=== PATIENT | female | born 1970 | race African-American/Black ===

== ENCOUNTER 2020-03-27 20:04 | Emergency (ER) | payer OTHER ==
[~2020-03-27] VITALS: Ht 165.1 cm; Wt 98.9 kg
--- NOTE | 2020-03-27 20:10 | NUR ---
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 PRESSURE APPLIED PER PT HER TDAP VACCINE IS NOT UP TO DATE.
--- NOTE | 2020-03-27 20:20 | NUR ---
GUERDA JOHNSTON PAC AT THE BED SIDE FOR ASSESSMENT
[2020-03-27] MEDS ORDERED: LIDOCAINE 1% INJ 50 ML MDV IJ ONE (20:26)
[2020-03-27] MEDS ORDERED: TDAP [DIPH/PERTUSSIS/TET] 0.5 ML VIAL IM ONE ×2 (20:28→20:30)
[2020-03-27] MEDS ORDERED: ACETAMINOPHEN ES 500 MG TABLET ONE (20:28)
--- NOTE | 2020-03-27 20:28 | NUR ---
TECH AT BEDSIDE FOR XRAY
[2020-03-27] MEDS ORDERED: ACETAMINOPHEN 325 MG TABLET PO ONE (20:30)
--- NOTE | 2020-03-27 21:03 | NUR ---
DR JODI JAEGER.
[2020-03-27] MEDS ORDERED: CEFTRIAXONE 1GM BAG (ER ONLY) 1 GM/50 ML PIGGYBACK IV ONE (21:30)
[2020-03-27] MEDS ORDERED: CEFTRIAXONE 1GM BAG (ER ONLY) 50 ML IV ONE (21:45)
--- NOTE | 2020-03-27 22:18 | NUR ---
PT IS MEDICLLY STABLE FOR D/C. L MIDDLE FINGER W/ INTACT SWUTURES COVERED W. DD AND FINGER SPLINT. REC'D IV ATB. IV removed. Catheter intact and site benign. Pressure and 4x4 applied to site. No bleeding noted. Patient discharged to home in stable condition. Rx and Written and verbal after care instructions given. Patient verbalizes understanding of instruction. pt was instructed to f/w w/ hand surgeon in 24 hrs. f/u w/ PCP or ER in 48 hrs and in 10 days for suture removal.
[2020-03-27 22:22] VITALS: BP 141/77
== END 2020-03-27 22:23 | disposition home or self-care (01) ==
LOC: ER 20:06
DX: S62.663A Nondisplaced fracture of distal phalanx of left middle finger, initial encounter for closed fracture (principal); S61.213A Laceration without foreign body of left middle finger without damage to nail, initial encounter; Z98.890 Other specified postprocedural states; Z91.040 Latex allergy status; W26.8XXA Contact with other sharp object(s), not elsewhere classified, initial encounter; Y93.89 Activity, other specified; Y92.89 Other specified places as the place of occurrence of the external cause; Y99.8 Other external cause status
CPT/HCPCS: 12002; 73140; 90471; 90715; 96365; 99284; A6403; J0696; J3490